=== PATIENT | male | born 1980 | race African-American/Black ===

== ENCOUNTER 2020-07-21 04:14 | Inpatient (IN) | payer MEDICAID ==
[~2020-07-21] VITALS: Ht 180.3 cm; Wt 67.6 kg
[2020-07-21] MEDS ORDERED: PIPERACILLIN/TAZ 3.375G PREMIX 50 ML IV ONE (05:15)
[2020-07-21] MEDS ORDERED: VANCOMYCIN 1 G PREMIX 200 ML IV ONE (05:15)
[2020-07-21] MEDS ORDERED: SODIUM CHLORIDE 0.9% 1,000 ML IV ONE (05:15)
[2020-07-21] MEDS ORDERED: MORPHINE SULFATE 4 MG/ML CPJ (NOT FOR IM USE) IV ONE (06:00)
[2020-07-21 06:01] LABS: HEMATOCRIT. 32.2 % (42.0-52.0); MEAN CORPUSCULAR HEMOGLOBIN 32.5 pg (28.0-32.0); MEAN CORPUSCULAR VOLUME 94.8 fL (80.0-94.0); PLATELET 79 x1000/uL (130-400); RED BLOOD CELL COUNT 3.39 mill/uL (4.7-6.1); RED CELL DISTRIBUTION WIDTH 15.6 % (11.6-14.6)
[2020-07-21 06:05] LABS: CHLORIDE 99 mEq/L (98-107)
[2020-07-21 06:13] LABS: INR 1.3; PROTHROMBIN TIME 13.5 sec (9.6-11.0)
[2020-07-21 06:45] LABS: CLARITY URINE CLEAR (CLEAR); COLOR URINE YELLOW (YELLOW); KETONES URINE NEGATIVE (NEGATIVE); LEUKOCYTE ESTERASE URINE NEGATIVE (NEGATIVE); NITRITE URINE NEGATIVE (NEGATIVE); OCCULT BLOOD URINE TRACE (NEGATIVE); PH URINE >=9.0 (4.5-8.0); PROTEIN URINE 2+ (NEGATIVE); SPECIFIC GRAVITY URINE 1.011 (1.005-1.030); UROBILINOGEN URINE 0.2 E.U./dL (0.2-1.0)
[2020-07-21 07:34] LABS: PLATELET ESTIMATE DECREASED
[2020-07-21] MEDS ORDERED: ACETAMINOPHEN 325MG TABLET PO ONE (08:15)
[2020-07-21] MEDS ORDERED: AZITHROMYCIN 500 MG in DEXT 5% WATER 250 ML IV SCH (12:00)
[2020-07-21] MEDS ORDERED: ENOXAPARIN 30MG/0.3ML SYR SUBCUT SCH (12:00)
[2020-07-21] MEDS ORDERED: CEFTRIAXONE 1 G PREMIX 50 ML IV SCH (12:00)
[2020-07-21] MEDS: HYDROCODONE/ACETAMINOPHEN 5/325MG TABLET PO PRN (13:45)
[2020-07-21] MEDS ORDERED: FOLI-43 MT (19:23)
[2020-07-21] MEDS ORDERED: LEVO125T8 MT (19:23)
[2020-07-21] MEDS ORDERED: APIX5TAB MT (19:23)
[2020-07-21] MEDS ORDERED: GABA-529 MT (19:23)
[2020-07-21] MEDS ORDERED: ATOR20TA65 MT (19:23)
[2020-07-21] MEDS ORDERED: METO25TA6 MT (19:23)
[2020-07-21] MEDS ORDERED: URSO500T7 MT (19:23)
[2020-07-21] MEDS ORDERED: SUCR1TAB MT (19:23)
[2020-07-21] MEDS ORDERED: TAMS-11 MT (19:23)
[2020-07-21] MEDS ORDERED: LOSA25TA26 MT (19:23)
[2020-07-21] MEDS ORDERED: ZOLP5TAB2 MT (19:23)
[2020-07-21] MEDS ORDERED: SEVE800T8 MT (19:23)
[2020-07-21] MEDS ORDERED: FAMO20TA8 MT (19:23)
[2020-07-21] MEDS ORDERED: MYCO180T MT (19:23)
[2020-07-21] MEDS ORDERED: EPOE40007 IJ (19:23)
[2020-07-21] MEDS ORDERED: TACR1CAP22 MT (19:23)
[2020-07-21] MEDS: ONDANSETRON HCL 4MG/2ML INJ IV PRN (21:36)
[2020-07-21 23:04] VITALS: BP 153/94
[2020-07-22] VITALS: BP 153/94
[2020-07-22 04:00] VITALS: BP 143/88
[2020-07-22 05:37] LABS: HEMOGLOBIN. 9.2 g/dL (14.0-18.0); MEAN CORPUSCULAR HEMOGLOBIN 32.6 pg (28.0-32.0); MEAN CORPUSCULAR VOLUME 95.8 fL (80.0-94.0); PLATELET 66 x1000/uL (130-400); RED BLOOD CELL COUNT 2.82 mill/uL (4.7-6.1); RED CELL DISTRIBUTION WIDTH 15.3 % (11.6-14.6)
[2020-07-22 08:00] VITALS: BP 133/85
[2020-07-22 12:00] VITALS: BP 156/98
[2020-07-22 12:19] LABS: PLATELET ESTIMATE DECREASED
[2020-07-22] MEDS: CEFTRIAXONE 1,000 MG in DEXTROSE 5% WATER 50 ML IV SCH (14:55)
[2020-07-22] MEDS: AZITHROMYCIN 500MG in DEXTROSE 5% WATER 250ML IV SCH (14:56)
[2020-07-22 16:00] VITALS: BP 119/80
[2020-07-22 20:00] VITALS: BP 126/84
[2020-07-23] VITALS: BP 161/97
[2020-07-23 04:00] VITALS: BP 142/87
[2020-07-23 08:00] VITALS: BP 123/84
[2020-07-23] MEDS: ACETAMINOPHEN 325MG TABLET PO PRN (09:21)
[2020-07-23 11:50] VITALS: BP 137/85
[2020-07-23] MEDS: AZITHROMYCIN 500MG in DEXTROSE 5% WATER 250ML IV SCH (13:05)
[2020-07-23] MEDS: CEFTRIAXONE 1,000 MG in DEXTROSE 5% WATER 50 ML IV SCH (14:16)
[2020-07-23 16:00] VITALS: BP 131/87
[2020-07-23] MEDS: ALPRAZOLAM 0.5 MG TABLET PO PRN (16:53)
[2020-07-23 20:00] VITALS: BP 142/85
[2020-07-24] VITALS: BP 140/86
[2020-07-24] MEDS: ALPRAZOLAM 0.5 MG TABLET PO PRN ×3 (00:44→23:20)
[2020-07-24 04:00] VITALS: BP 141/91
[2020-07-24 06:43] LABS: HEMATOCRIT. 30.7 % (42.0-52.0); HEMOGLOBIN. 10.5 g/dL (14.0-18.0); MEAN CORPUSCULAR HEMOGLOBIN 32.3 pg (28.0-32.0); MEAN PLATELET VOLUME 8.3 fl (7.4-10.4); PLATELET 73 x1000/uL (130-400); RED BLOOD CELL COUNT 3.23 mill/uL (4.7-6.1); RED CELL DISTRIBUTION WIDTH 15.6 % (11.6-14.6)
[2020-07-24 08:00] VITALS: BP 145/92
[2020-07-24 12:00] VITALS: BP 138/91
[2020-07-24] MEDS ORDERED: TACROLIMUS 1MG CAPSULE PO SCH (13:00)
[2020-07-24] MEDS: AZITHROMYCIN 500MG in DEXTROSE 5% WATER 250ML IV SCH (13:06)
[2020-07-24] MEDS: CEFTRIAXONE 1,000 MG in DEXTROSE 5% WATER 50 ML IV SCH (13:06)
[2020-07-24 13:41] LABS: PLATELET ESTIMATE DECREASED
[2020-07-24 16:00] VITALS: BP 122/86
[2020-07-24 20:00] VITALS: BP 136/86
[2020-07-24] MEDS: TACROLIMUS 1MG CAPSULE PO SCH (20:49)
[2020-07-25] VITALS: BP 136/83
[2020-07-25 04:00] VITALS: BP 146/88
[2020-07-25 08:00] VITALS: BP 148/91
[2020-07-25] MEDS: TACROLIMUS 1MG CAPSULE PO SCH ×2 (09:17→21:54)
[2020-07-25 12:00] VITALS: BP 136/88
[2020-07-25] MEDS: AZITHROMYCIN 500MG in DEXTROSE 5% WATER 250ML IV SCH (13:46)
[2020-07-25] MEDS: CEFTRIAXONE 1,000 MG in DEXTROSE 5% WATER 50 ML IV SCH (13:46)
[2020-07-25] MEDS: ALPRAZOLAM 0.5 MG TABLET PO PRN ×2 (14:11→23:16)
[2020-07-25 16:00] VITALS: BP 138/89
[2020-07-25 20:00] VITALS: BP 130/82
[2020-07-26] VITALS: BP 125/85
[2020-07-26 04:00] VITALS: BP 153/66
[2020-07-26] MEDS: HYDROCODONE/ACETAMINOPHEN 5/325MG TABLET PO PRN (04:58)
[2020-07-26 08:00] VITALS: BP 130/61
[2020-07-26] MEDS: TACROLIMUS 1MG CAPSULE PO SCH ×2 (09:29→19:40)
[2020-07-26 12:00] VITALS: BP 142/70
[2020-07-26] MEDS: DIPHENHYDRAMINE 25MG CAPSULE PO PRN (15:17)
[2020-07-26 16:00] VITALS: BP 138/88
[2020-07-26] MEDS: ALPRAZOLAM 0.5 MG TABLET PO PRN (19:40)
[2020-07-26 19:54] VITALS: BP 145/86
[2020-07-27 00:05] VITALS: BP 150/77
[2020-07-27] MEDS: DIPHENHYDRAMINE 25MG CAPSULE PO PRN ×2 (00:08→16:22)
[2020-07-27] MEDS: ALPRAZOLAM 0.5 MG TABLET PO PRN ×2 (03:07→23:14)
[2020-07-27 04:00] VITALS: BP 124/69
[2020-07-27 07:38] LABS: HEPATITIS B SURFACE ANTIGEN NEGATIVE
[2020-07-27 08:00] VITALS: BP 145/97
[2020-07-27 08:08] LABS: HEPATITIS A AB IGM NEGATIVE (NEGATIVE)
[2020-07-27] MEDS: TACROLIMUS 1MG CAPSULE PO SCH ×2 (08:26→21:06)
[2020-07-27 12:00] VITALS: BP 131/87
[2020-07-27 16:00] VITALS: BP 146/91
[2020-07-27 20:00] VITALS: BP 146/94
[2020-07-27] MEDS: ACETAMINOPHEN 325MG TABLET PO PRN (21:05)
[2020-07-28 04:00] VITALS: BP 127/80
[2020-07-28 08:00] VITALS: BP 138/92
[2020-07-28] MEDS: TACROLIMUS 1MG CAPSULE PO SCH ×2 (08:49→20:42)
[2020-07-28 12:00] VITALS: BP 138/99
[2020-07-28] MEDS: ALPRAZOLAM 0.5 MG TABLET PO PRN ×2 (14:26→23:26)
[2020-07-28 20:00] VITALS: BP 134/92
[2020-07-29 00:06] VITALS: BP_SYST 122; BP_SYST 127; BP_DIAS 47; BP_DIAS 93
[2020-07-29 04:00] VITALS: BP 153/92
[2020-07-29] MEDS: ACETAMINOPHEN 325MG TABLET PO PRN ×2 (04:44→12:49)
[2020-07-29 06:09] LABS: BASOPHILS % 0.9 % (0.0-2.0); EOSINOPHILS % 13.6 % (0.0-5.0); HEMATOCRIT. 33.3 % (42.0-52.0); HEMOGLOBIN. 11.3 g/dL (14.0-18.0); LYMPHOCYTES % 39.8 % (20.0-50.0); MEAN CORPUSCULAR HEMOGLOBIN 32.2 pg (28.0-32.0); MEAN CORPUSCULAR VOLUME 94.6 fL (80.0-94.0); MEAN PLATELET VOLUME 9.5 fl (7.4-10.4); NEUTROPHILS % 35.7 % (40.0-76.0); PLATELET 77 x1000/uL (130-400); RED BLOOD CELL COUNT 3.52 mill/uL (4.7-6.1); RED CELL DISTRIBUTION WIDTH 15.6 % (11.6-14.6)
[2020-07-29 08:00] VITALS: BP 139/88
[2020-07-29] MEDS: TACROLIMUS 1MG CAPSULE PO SCH ×2 (10:12→20:52)
[2020-07-29 12:00] VITALS: BP 148/99
[2020-07-29] MEDS: ALPRAZOLAM 0.5 MG TABLET PO PRN ×2 (12:51→23:10)
[2020-07-29 16:00] VITALS: BP 123/80
[2020-07-29] MEDS: DIPHENHYDRAMINE 25MG CAPSULE PO PRN (20:52)
[2020-07-30 04:00] VITALS: BP 148/90
[2020-07-30 08:00] VITALS: BP 168/100
[2020-07-30] MEDS: TACROLIMUS 1MG CAPSULE PO SCH ×2 (08:26→19:51)
[2020-07-30 09:00] VITALS: BP 137/88
[2020-07-30 09:31] LABS: HEMATOCRIT. 30.5 % (42.0-52.0); HEMOGLOBIN. 10.6 g/dL (14.0-18.0); MEAN CORPUSCULAR HEMOGLOBIN 32.6 pg (28.0-32.0); MEAN CORPUSCULAR VOLUME 94.1 fL (80.0-94.0); RED BLOOD CELL COUNT 3.24 mill/uL (4.7-6.1); RED CELL DISTRIBUTION WIDTH 15.5 % (11.6-14.6)
[2020-07-30 12:00] VITALS: BP 139/92
[2020-07-30 13:50] LABS: PLATELET ESTIMATE DECREASED
[2020-07-30 13:51] LABS: MEAN PLATELET VOLUME 8.9 fl (7.4-10.4); PLATELET 81 x1000/uL (130-400)
[2020-07-30 16:00] VITALS: BP 145/88
[2020-07-30] MEDS: ALPRAZOLAM 0.5 MG TABLET PO PRN (19:51)
[2020-07-30] MEDS: ONDANSETRON HCL 4MG/2ML INJ IV PRN (19:51)
[2020-07-30 20:00] VITALS: BP 139/75
[2020-07-31 00:05] VITALS: BP 131/84
[2020-07-31] MEDS: DIPHENHYDRAMINE 25MG CAPSULE PO PRN (01:07)
[2020-07-31 04:00] VITALS: BP 130/90
[2020-07-31] MEDS: ALPRAZOLAM 0.5 MG TABLET PO PRN (04:01)
[2020-07-31 08:00] VITALS: BP 155/91
[2020-07-31] MEDS: TACROLIMUS 1MG CAPSULE PO SCH ×2 (08:05→22:17)
[2020-07-31 12:00] VITALS: BP 144/90
[2020-07-31 16:00] VITALS: BP 149/93
[2020-07-31] MEDS: ACETAMINOPHEN 325MG TABLET PO PRN (19:55)
[2020-07-31 20:00] VITALS: BP 147/96
[2020-07-31] MEDS: ZOLPIDEM TARTRATE 5MG TABLET PO PRN (22:17)
[2020-08-01] VITALS: BP 143/86
[2020-08-01] MEDS: ALPRAZOLAM 0.5 MG TABLET PO PRN ×2 (01:02→23:34)
[2020-08-01 04:00] VITALS: BP 142/91
[2020-08-01 08:00] VITALS: BP 136/85
[2020-08-01] MEDS: TACROLIMUS 1MG CAPSULE PO SCH ×2 (08:37→23:35)
[2020-08-01 12:00] VITALS: BP 131/79
[2020-08-01] MEDS: ACETAMINOPHEN 325MG TABLET PO PRN (14:53)
[2020-08-01 16:00] VITALS: BP 141/85
[2020-08-01 20:00] VITALS: BP 138/82
[2020-08-01] MEDS: ZOLPIDEM TARTRATE 5MG TABLET PO PRN (23:35)
[2020-08-02] VITALS: BP 142/86
[2020-08-02 04:00] VITALS: BP 132/77
[2020-08-02 08:00] VITALS: BP 138/92
[2020-08-02] MEDS: TACROLIMUS 1MG CAPSULE PO SCH ×2 (09:11→22:10)
[2020-08-02 12:00] VITALS: BP 139/90
[2020-08-02 16:00] VITALS: BP 144/94
[2020-08-02 20:00] VITALS: BP 134/86
[2020-08-02] MEDS: ZOLPIDEM TARTRATE 5MG TABLET PO PRN (22:10)
[2020-08-03 00:41] VITALS: BP 135/84
[2020-08-03 04:00] VITALS: BP 119/93
[2020-08-03 08:00] VITALS: BP 122/66
[2020-08-03] MEDS: TACROLIMUS 1MG CAPSULE PO SCH ×2 (08:32→19:56)
[2020-08-03 12:00] VITALS: BP 125/80
[2020-08-03] MEDS: ALPRAZOLAM 0.5 MG TABLET PO PRN ×2 (15:38→22:15)
[2020-08-03 16:00] VITALS: BP 129/80
[2020-08-03] MEDS: ACETAMINOPHEN 325MG TABLET PO PRN (18:13)
[2020-08-03 20:00] VITALS: BP 117/77
[2020-08-03] MEDS: ZOLPIDEM TARTRATE 5MG TABLET PO PRN (22:15)
[2020-08-04 00:05] VITALS: BP 122/83
[2020-08-04 04:00] VITALS: BP 136/93
[2020-08-04 08:00] VITALS: BP 138/67
[2020-08-04] MEDS: TACROLIMUS 1MG CAPSULE PO SCH ×2 (08:36→20:39)
[2020-08-04 09:41] LABS: HEMATOCRIT 30.9 % (42.0-52.0); HEMOGLOBIN 10.4 g/dL (14.0-18.0); MEAN CORPUSCULAR HEMOGLOBIN 31.9 pg (28.0-32.0); MEAN CORPUSCULAR VOLUME 95.3 fL (80.0-94.0); PLATELET 88 x1000/uL (130-400); RED BLOOD CELL COUNT 3.24 mill/uL (4.7-6.1); RED CELL DISTRIBUTION WIDTH 15.8 % (11.6-14.6)
[2020-08-04] MEDS: ACETAMINOPHEN 325MG TABLET PO PRN ×2 (11:34→18:28)
[2020-08-04 12:00] VITALS: BP 145/77
[2020-08-04 16:00] VITALS: BP 143/94
[2020-08-04] MEDS: ENOXAPARIN 30MG/0.3ML SYR SUBCUT SCH (18:03)
[2020-08-04 20:00] VITALS: BP 145/99
[2020-08-04] MEDS: DIPHENHYDRAMINE 25MG CAPSULE PO PRN (20:39)
[2020-08-04] MEDS: ZOLPIDEM TARTRATE 5MG TABLET PO PRN (22:18)
[2020-08-04] MEDS: CEFEPIME 1,000 MG in DEXTROSE 5% WATER 50 ML IV SCH (22:18)
[2020-08-04] MEDS: ALPRAZOLAM 0.5 MG TABLET PO PRN (22:18)
[2020-08-05 00:05] VITALS: BP 141/90
[2020-08-05 04:00] VITALS: BP 143/90
[2020-08-05] MEDS: DIPHENHYDRAMINE 25MG CAPSULE PO PRN ×3 (04:30→22:33)
[2020-08-05 08:00] VITALS: BP 150/96
[2020-08-05] MEDS: TACROLIMUS 1MG CAPSULE PO SCH ×2 (09:19→22:33)
[2020-08-05 12:00] VITALS: BP 145/94
[2020-08-05 16:00] VITALS: BP 149/93
[2020-08-05] MEDS: ACETAMINOPHEN 325MG TABLET PO PRN (16:04)
[2020-08-05] MEDS: ENOXAPARIN 30MG/0.3ML SYR SUBCUT SCH (17:57)
[2020-08-05] MEDS: CALCIUM ACETATE 667MG CAPSULE PO SCH (17:57)
[2020-08-05 20:00] VITALS: BP 160/92
[2020-08-05] MEDS: ALPRAZOLAM 0.5 MG TABLET PO PRN (20:03)
[2020-08-05] MEDS: CEFEPIME 1,000 MG in DEXTROSE 5% WATER 50 ML IV SCH ×2 (20:37→22:33)
[2020-08-06] VITALS: BP 130/71
[2020-08-06 04:00] VITALS: BP 140/93
[2020-08-06] MEDS: CALCIUM ACETATE 667MG CAPSULE PO SCH ×3 (06:13→17:08)
[2020-08-06 08:00] VITALS: BP 144/94
[2020-08-06] MEDS: TACROLIMUS 1MG CAPSULE PO SCH ×2 (08:30→20:48)
[2020-08-06] MEDS: ACETAMINOPHEN 325MG TABLET PO PRN ×2 (09:24→20:47)
[2020-08-06 12:00] VITALS: BP 152/95
[2020-08-06] MEDS: DIPHENHYDRAMINE 25MG CAPSULE PO PRN (14:31)
[2020-08-06 16:00] VITALS: BP 152/95
[2020-08-06] MEDS: ENOXAPARIN 30MG/0.3ML SYR SUBCUT SCH ×2 (17:09→19:35)
[2020-08-06 20:42] VITALS: BP 132/87
[2020-08-06] MEDS: ALPRAZOLAM 0.5 MG TABLET PO PRN (21:26)
[2020-08-06] MEDS: ZOLPIDEM TARTRATE 5MG TABLET PO PRN (23:08)
[2020-08-07 00:32] VITALS: BP 138/82
[2020-08-07 04:00] VITALS: BP 128/79
[2020-08-07 08:00] VITALS: BP 128/82
[2020-08-07] MEDS: CALCIUM ACETATE 667MG CAPSULE PO SCH ×3 (09:05→16:46)
[2020-08-07] MEDS: TACROLIMUS 1MG CAPSULE PO SCH ×2 (09:05→20:46)
[2020-08-07] MEDS: DIPHENHYDRAMINE 25MG CAPSULE PO PRN (09:22)
[2020-08-07 12:00] VITALS: BP 137/80
[2020-08-07 16:00] VITALS: BP 122/84
[2020-08-07] MEDS: ENOXAPARIN 30MG/0.3ML SYR SUBCUT SCH (17:06)
[2020-08-07] MEDS: ACETAMINOPHEN 325MG TABLET PO PRN (17:08)
[2020-08-07 20:00] VITALS: BP 154/94
[2020-08-07] MEDS: ALPRAZOLAM 0.5 MG TABLET PO PRN (20:46)
[2020-08-07] MEDS: ZOLPIDEM TARTRATE 5MG TABLET PO PRN (22:51)
[2020-08-08] VITALS: BP 133/91
[2020-08-08] MEDS: DIPHENHYDRAMINE 25MG CAPSULE PO PRN ×2 (03:14→18:02)
[2020-08-08 04:00] VITALS: BP 130/85
[2020-08-08] MEDS: CALCIUM ACETATE 667MG CAPSULE PO SCH ×3 (06:19→18:02)
[2020-08-08 08:00] VITALS: BP 135/91
[2020-08-08] MEDS: TACROLIMUS 1MG CAPSULE PO SCH ×2 (08:08→22:27)
[2020-08-08 12:00] VITALS: BP 143/86
[2020-08-08] MEDS: ALPRAZOLAM 0.5 MG TABLET PO PRN ×2 (13:34→22:27)
[2020-08-08] MEDS ORDERED: HEPARIN SODIUM 1,000 UNIT/1ML VIAL IV SCH (15:00)
[2020-08-08] MEDS: ONDANSETRON HCL 4MG/2ML INJ IV PRN (15:15)
[2020-08-08 16:00] VITALS: BP 109/76
[2020-08-08] MEDS: ENOXAPARIN 30MG/0.3ML SYR SUBCUT SCH (18:00)
[2020-08-08] MEDS: TRAMADOL 50MG TABLET PO PRN (18:02)
[2020-08-08 20:00] VITALS: BP 135/90
[2020-08-08] MEDS: ZOLPIDEM TARTRATE 5MG TABLET PO PRN (22:27)
[2020-08-09] VITALS: BP 116/77
[2020-08-09 04:00] VITALS: BP_SYST 116; BP_SYST 137; BP_DIAS 77; BP_DIAS 91
[2020-08-09] MEDS: CALCIUM ACETATE 667MG CAPSULE PO SCH ×3 (06:03→17:22)
[2020-08-09 08:00] VITALS: BP 132/93
[2020-08-09] MEDS: TACROLIMUS 1MG CAPSULE PO SCH (09:06)
[2020-08-09] MEDS: DIPHENHYDRAMINE 25MG CAPSULE PO PRN ×2 (09:06→16:10)
[2020-08-09] MEDS: TRAMADOL 50MG TABLET PO PRN ×2 (09:09→16:11)
[2020-08-09 12:00] VITALS: BP 132/95
[2020-08-09 16:00] VITALS: BP 132/83
[2020-08-09] MEDS: ENOXAPARIN 30MG/0.3ML SYR SUBCUT SCH (17:22)
[2020-08-09 17:25] VITALS: BP 134/86
[2020-08-09] MEDS: ALPRAZOLAM 0.5 MG TABLET PO PRN (21:19)
[2020-08-10] VITALS (7 sets, daily range): BP systolic 125–146; BP diastolic 84–92
[2020-08-10] MEDS: ZOLPIDEM TARTRATE 5MG TABLET PO PRN (00:25)
[2020-08-10] MEDS: ONDANSETRON HCL 4MG/2ML INJ IV PRN ×2 (03:12→14:40)
[2020-08-10] MEDS: DIPHENHYDRAMINE 25MG CAPSULE PO PRN (03:12)
[2020-08-10] MEDS: CALCIUM ACETATE 667MG CAPSULE PO SCH ×3 (06:31→17:21)
[2020-08-10 07:30] LABS: HEMATOCRIT 26.4 % (42.0-52.0); HEMOGLOBIN 9.1 g/dL (14.0-18.0); MEAN CORPUSCULAR HEMOGLOBIN 32.7 pg (28.0-32.0); MEAN CORPUSCULAR VOLUME 94.2 fL (80.0-94.0); PLATELET 74 x1000/uL (130-400); RED CELL DISTRIBUTION WIDTH 15.3 % (11.6-14.6)
[2020-08-10] MEDS: TACROLIMUS 0.5 MG CAPSULE PO SCH ×2 (09:02→20:36)
[2020-08-10] MEDS: TRAMADOL 50MG TABLET PO PRN ×2 (09:03→17:21)
[2020-08-10] MEDS ORDERED: SODIUM POLYSTYRENE SULFONATE 15 G/60 ML BOT PO SCH (11:00)
[2020-08-10] MEDS: ALPRAZOLAM 0.5 MG TABLET PO PRN (13:24)
[2020-08-10] MEDS: ENOXAPARIN 30MG/0.3ML SYR SUBCUT SCH (17:21)
[2020-08-10] MEDS ORDERED: ALPR0.5T PO (18:25)
[2020-08-10] MEDS ORDERED: METO25TA6 MT (18:25)
[2020-08-10] MEDS ORDERED: SEVE800T8 MT (18:25)
[2020-08-10] MEDS ORDERED: TACR0.5C PO (18:25)
[2020-08-10] MEDS ORDERED: LEVO125T8 MT (18:25)
[2020-08-10] MEDS ORDERED: ZOLP5TAB2 MT (18:25)
[2020-08-10] MEDS ORDERED: GABA-529 MT (18:25)
== END 2020-08-10 20:40 | disposition home or self-care (01) | DRG 137 ==
LOC: ER 04:14 → EDBEDREQTM 07:38 → 7EST 07:56 → EDBEDREQTM 08:04 → EDBEDREQ 08:04 → ENRESERV 20:48
PROVIDERS: ADMIT Internal Medicine; ATTEND Internal Medicine
PROC: 5A1D70Z Performance of Urinary Filtration, Intermittent, Less than 6 Hours Per Day (ICD-10-PCS; principal; 2020-07-22)
PROC: 5A1D70Z Performance of Urinary Filtration, Intermittent, Less than 6 Hours Per Day (ICD-10-PCS; 2020-07-25)
PROC: 5A1D70Z Performance of Urinary Filtration, Intermittent, Less than 6 Hours Per Day (ICD-10-PCS; 2020-07-27)
PROC: 5A1D70Z Performance of Urinary Filtration, Intermittent, Less than 6 Hours Per Day (ICD-10-PCS; 2020-07-29)
PROC: 5A1D70Z Performance of Urinary Filtration, Intermittent, Less than 6 Hours Per Day (ICD-10-PCS; 2020-08-01)
PROC: 5A1D70Z Performance of Urinary Filtration, Intermittent, Less than 6 Hours Per Day (ICD-10-PCS; 2020-08-03)
PROC: 5A1D70Z Performance of Urinary Filtration, Intermittent, Less than 6 Hours Per Day (ICD-10-PCS; 2020-08-05)
PROC: 5A1D70Z Performance of Urinary Filtration, Intermittent, Less than 6 Hours Per Day (ICD-10-PCS; 2020-08-08)
PROC: 5A1D70Z Performance of Urinary Filtration, Intermittent, Less than 6 Hours Per Day (ICD-10-PCS; 2020-08-10)
DX: U07.1 COVID-19 (principal); J96.00 Acute respiratory failure, unspecified whether with hypoxia or hypercapnia; E87.1 Hypo-osmolality and hyponatremia; I12.0 Hypertensive chronic kidney disease with stage 5 chronic kidney disease or end stage renal disease; D61.818 Other pancytopenia; I48.91 Unspecified atrial fibrillation; J12.89 Other viral pneumonia; N40.0 Benign prostatic hyperplasia without lower urinary tract symptoms; E16.2 Hypoglycemia, unspecified; N18.6 End stage renal disease; R74.01 Elevation of levels of liver transaminase levels; E78.00 Pure hypercholesterolemia, unspecified; E78.5 Hyperlipidemia, unspecified; E21.1 Secondary hyperparathyroidism, not elsewhere classified; D64.9 Anemia, unspecified; D69.6 Thrombocytopenia, unspecified; N17.9 Acute kidney failure, unspecified; F32.9 Major depressive disorder, single episode, unspecified; D72.819 Decreased white blood cell count, unspecified; E03.9 Hypothyroidism, unspecified; Z94.4 Liver transplant status; Z99.2 Dependence on renal dialysis; Z94.0 Kidney transplant status; Z79.890 Hormone replacement therapy; Z79.899 Other long term (current) drug therapy; Z79.01 Long term (current) use of anticoagulants
CPT/HCPCS: 36415; 71045; 80048; 80053; 81003; 82962; 83036; 83605; 84145; 84484; 85025; 85027; 86645; 86705; 86709; 86803; 87340; 87635; 93005; 99285; J0456; J0692; J0696; J1644; J1650; J2270; J2405; J2543; J3370; J7030; J7040; J7060; J7507; Q0163; U0003

== ENCOUNTER 2020-09-09 17:56 | Emergency (ER) | payer OTHER, MEDICAID ==
[~2020-09-09] VITALS: Ht 177.8 cm; Wt 67.0 kg
[~2020-09-09 17:56] MED LIST: ATOR20TA65 MT; ENOXAPARIN 40MG/0.4ML SYR SUBCUT SCH; EPOE40007 IJ; FAMO20TA8 MT; FOLI-43 MT; GABA-529 MT; LEVO125T8 MT; LOSA25TA26 MT; METO25TA6 MT; MYCO180T MT; SEVE800T8 MT; SUCR1TAB MT; TACR0.5C PO; TACR1CAP22 MT; TAMS-11 MT; URSO500T7 MT; ZOLP5TAB2 MT
[2020-09-09] MEDS ORDERED: HYDROCODONE/ACETAMINOPHEN 5/325MG TABLET PO ONE (19:00)
[2020-09-09] MEDS ORDERED: ASPIRIN 81MG TABLET PO ONE (19:00)
[2020-09-09 19:25] LABS: BASOPHILS % 1.4 % (0.0-2.0); EOSINOPHILS % 11.3 % (0.0-5.0); HEMATOCRIT. 31.9 % (42.0-52.0); HEMOGLOBIN. 10.8 g/dL (14.0-18.0); LYMPHOCYTES % 38.9 % (20.0-50.0); MEAN CORPUSCULAR HEMOGLOBIN 33.2 pg (28.0-32.0); MEAN CORPUSCULAR VOLUME 98.2 fL (80.0-94.0); MEAN PLATELET VOLUME 8.5 fl (7.4-10.4); MONOCYTES % 8.4 % (2.0-8.0); PLATELET 119 x1000/uL (130-400); RED BLOOD CELL COUNT 3.25 mill/uL (4.7-6.1); RED CELL DISTRIBUTION WIDTH 17.8 % (11.6-14.6)
[2020-09-09 19:31] LABS: CHLORIDE 100 mEq/L (98-107)
[2020-09-09 19:35] LABS: INR 1.1; PARTIAL THROMBOPLASTIN TIME 34.4 sec (23.4-31.0); PROTHROMBIN TIME 11.9 sec (9.6-11.0)
[2020-09-09] MEDS ORDERED: CLONIDINE 0.1MG TABLET PO PRN (23:45)
[2020-09-09] MEDS ORDERED: IPRATROPIUM/ALBUTEROL 0.5-3(2.5)MG/3ML NEB NEB PRN (23:45)
[2020-09-09] MEDS ORDERED: GUAIFENESIN 200MG/10ML SUGAR FREE UDC PO PRN (23:45)
[2020-09-09] MEDS ORDERED: ACETAMINOPHEN 325MG TABLET PO PRN (23:45)
[2020-09-09] MEDS ORDERED: MAGNESIUM/ALUMINUM HYDROXIDE/SIMETHICONE 30ML UDC PO PRN (23:45)
[2020-09-09] MEDS ORDERED: ONDANSETRON HCL 4MG/2ML INJ IV PRN (23:45)
[2020-09-09] MEDS ORDERED: DOCUSATE SODIUM 100MG CAPSULE PO PRN (23:45)
[2020-09-09] MEDS ORDERED: NA PHOS,M-B/NA PHOS,DI-BA ENEMA 118ML PR PRN (23:45)
[2020-09-09] MEDS ORDERED: DIPHENHYDRAMINE 50MG/ML VIAL IV PRN (23:45)
[2020-09-09] MEDS ORDERED: LORAZEPAM 2MG/ML CPJ IV PRN (23:45)
[2020-09-09] MEDS ORDERED: MORPHINE SULFATE 2 MG/ML CPJ (NOT FOR IM USE) IV PRN (23:45)
[2020-09-10] MEDS ORDERED: ENOXAPARIN 30MG/0.3ML SYR SUBCUT SCH (06:00)
[2020-09-10] MEDS: HYDROCODONE/ACETAMINOPHEN 5/325MG TABLET PO PRN ×2 (07:31→16:58)
[2020-09-10] MEDS ORDERED: ASPIRIN 81MG EC TABLET PO SCH (09:00)
[2020-09-10 15:23] LABS: CHLORIDE 99 mEq/L (98-107)
[2020-09-10 15:25] LABS: BASOPHILS % 1.4 % (0.0-2.0); EOSINOPHILS % 14.4 % (0.0-5.0); HEMATOCRIT. 30.9 % (42.0-52.0); HEMOGLOBIN. 10.3 g/dL (14.0-18.0); LYMPHOCYTES % 40.6 % (20.0-50.0); MEAN CORPUSCULAR VOLUME 98.8 fL (80.0-94.0); MEAN PLATELET VOLUME 8.6 fl (7.4-10.4); MONOCYTES % 8.5 % (2.0-8.0); NEUTROPHILS % 35.1 % (40.0-76.0); PLATELET 109 x1000/uL (130-400); RED BLOOD CELL COUNT 3.12 mill/uL (4.7-6.1)
[2020-09-10 15:33] LABS: T4 FREE 0.21 ng/dL (0.76-1.46)
[2020-09-10 15:35] LABS: LDL CHOLESTEROL 112 mg/dL (5-100)
[2020-09-10 15:40] LABS: HDL CHOLESTEROL 110 mg/dL (40-59)
[2020-09-10 16:58] VITALS: BP 116/80
== END 2020-09-10 18:47 | disposition home or self-care (01) ==
LOC: ER 17:56 → EDBEDREQ 21:44 → ER 09-10 18:47 → CANBEDREQ 09-10 19:18
DX: R07.9 Chest pain, unspecified (principal); I12.0 Hypertensive chronic kidney disease with stage 5 chronic kidney disease or end stage renal disease; N18.6 End stage renal disease; N40.0 Benign prostatic hyperplasia without lower urinary tract symptoms; Z99.2 Dependence on renal dialysis; Z98.890 Other specified postprocedural states
CPT/HCPCS: 36415; 71045; 80048; 80053; 80061; 84439; 84481; 84484; 85025; 85610; 85730; 86850; 86900; 86901; 93005; 99285; J1650; J2405

== ENCOUNTER 2020-10-03 05:38 | Emergency (ER) | payer OTHER, MEDICAID ==
[~2020-10-03] VITALS: Ht 180.3 cm; Wt 68.0 kg
[~2020-10-03 05:38] MED LIST changes: -ENOXAPARIN 40MG/0.4ML SYR SUBCUT SCH
[2020-10-03 06:33] LABS: EOSINOPHILS % 7.7 % (0.0-5.0); HEMATOCRIT. 29.6 % (42.0-52.0); HEMOGLOBIN. 10.2 g/dL (14.0-18.0); MEAN CORPUSCULAR HEMOGLOBIN 34.1 pg (28.0-32.0); MEAN CORPUSCULAR VOLUME 99.3 fL (80.0-94.0); MEAN PLATELET VOLUME 9.3 fl (7.4-10.4); MONOCYTES % 8.6 % (2.0-8.0); NEUTROPHILS % 63.7 % (40.0-76.0); PLATELET 98 x1000/uL (130-400); RED BLOOD CELL COUNT 2.98 mill/uL (4.7-6.1); RED CELL DISTRIBUTION WIDTH 15.5 % (11.6-14.6)
[2020-10-03 06:40] LABS: CHLORIDE 99 mEq/L (98-107)
[2020-10-03 08:00] VITALS: BP 136/95
== END 2020-10-03 09:03 | disposition home or self-care (01) ==
LOC: ER 05:38
DX: R42 Dizziness and giddiness (principal); I12.0 Hypertensive chronic kidney disease with stage 5 chronic kidney disease or end stage renal disease; N18.6 End stage renal disease; E03.9 Hypothyroidism, unspecified; Z94.0 Kidney transplant status; Z94.4 Liver transplant status; Z88.8 Allergy status to other drugs, medicaments and biological substances
CPT/HCPCS: 36415; 71045; 80053; 83880; 84484; 85025; 93005; 99285